=== PATIENT | male | born 1960 | race American Indian/Alaskan Native ===

== ENCOUNTER 2019-08-19 01:36 | Emergency (ER) | payer BC ==
[2019-08-19 01:48] VITALS: BP 152/94
--- NOTE | 2019-08-19 02:30 | XRay Report ---
LEFT KNEE 4 VIEW(S) INDICATION / CLINICAL INFORMATION: pain and swelling COMPARISON: None available. FINDINGS: BONES / JOINT(S): No acute fracture or subluxation. No significant arthritis. Small to moderate supra patellar joint effusion. SOFT TISSUES: Mild anterior soft tissue swelling. ADDITIONAL FINDINGS: None. Signer Name: Deangelo Valadez MD Signed: 08/19/2019 2:25 AM Workstation Name: [id number]
--- NOTE | 2019-08-19 04:06 | Emergency Department Report ---
ED Lower Extremity HPI - General Chief Complaint: Extremity Injury, Lower Stated Complaint: LF KNEE PAIN Time Seen by Provider: 08/19/19 03:53 Source: patient Mode of arrival: Ambulatory Limitations: No Limitations - History of Present Illness Initial Comments: Patient is a 59-year-old male that presents emergency room with left knee pain and swelling x2 days. Yes patient denies trauma. Patient denies falling. Patient denies hitting his knee. Patient states he might of twisted but is not remember. Patient states the pain is a 10 out of 10. Pain states the pain is worse with movement better with rest. -: Sudden Injury: Knee: Left Type of Injury: unknown Place: home Severity: severe Severity scale (0 -10): 10 Improves With: rest Worsens With: weight bearing, movement, palpation Treatments Prior to Arrival: bandage - Related Data Previous Rx's Medication Instructions Recorded Last Taken Type Naproxen [Naprosyn TAB] 500 mg PO BID PRN #15 tablet 08/19/19 Unknown Rx Allergies Allergy/AdvReac Type Severity Reaction Status Date / Time lidocaine Allergy Hives Verified 08/19/19 01:48 Penicillins Allergy Anaphylaxis Verified 08/19/19 01:48 ED Review of Systems ROS: Stated complaint: LF KNEE PAIN Other details as noted in HPI Constitutional: denies: chills, fever Eyes: denies: eye pain, eye discharge, vision change ENT: denies: ear pain, throat pain Respiratory: denies: cough, shortness of breath, wheezing Cardiovascular: denies: chest pain, palpitations Endocrine: no symptoms reported Gastrointestinal: denies: abdominal pain, nausea, diarrhea Genitourinary: denies: urgency, dysuria Musculoskeletal: denies: back pain, joint swelling, arthralgia Skin: denies: rash, lesions Neurological: denies: headache, weakness, paresthesias Psychiatric: denies: anxiety, depression Hematological/Lymphatic: denies: easy bleeding, easy bruising ED Past Medical Hx - Past Medical History Previous Medical History?: Yes Hx Hypertension: Yes Additional medical history: Prediabetes. - Surgical History Past Surgical History?: No - Family History Family history: no significant - Social History Smoking Status: Never Smoker Substance Use Type: None - Medications Home Medications: Home Medications Medication Instructions Recorded Confirmed Last Taken Type Naproxen [Naprosyn TAB] 500 mg PO BID PRN #15 tablet 08/19/19 Unknown Rx ED Physical Exam - General Limitations: No Limitations General appearance: alert, in no apparent distress - Head Head exam: Present: atraumatic, normocephalic - Eye Eye exam: Present: normal appearance - ENT ENT exam: Present: mucous membranes moist - Neck Neck exam: Present: normal inspection - Respiratory Respiratory exam: Present: normal lung sounds bilaterally. Absent: respiratory distress - Cardiovascular Cardiovascular Exam: Present: regular rate, normal rhythm. Absent: systolic murmur, diastolic murmur, rubs, gallop - GI/Abdominal GI/Abdominal exam: Present: soft, normal bowel sounds - Rectal Rectal exam: Present: deferred - Extremities Exam Extremities exam: Present: normal inspection (Except for left knee swelling.), full ROM. Absent: tenderness - Back Exam Back exam: Present: normal inspection - Neurological Exam Neurological exam: Present: alert, oriented X3 - Psychiatric Psychiatric exam: Present: normal affect, normal mood - Skin Skin exam: Present: warm, dry, intact, normal color. Absent: rash ED Course Vital Signs 08/19/19 01:42 Temperature 98.5 F Pulse Rate 85 Respiratory 20 Rate Blood Pressure 152/94 O2 Sat by Pulse 98 Oximetry - Reevaluation(s) Reevaluation #1: I discussed all results and clinical findings with patient. I discussed plan of care with patient. Patient agrees with plan of care. Patient is stable for discharge. Patient will be discharged home. Patient given discharge instructions. Patient voiced understanding of discharge instructions. 08/19/19 04:10 ED Lower Extremity MDM - Radiology Data Radiology results: report reviewed LEFT KNEE 4 VIEW(S) INDICATION / CLINICAL INFORMATION: pain and swelling COMPARISON: None available. FINDINGS: BONES / JOINT(S): No acute fracture or subluxation. No significant arthritis. Small to moderate suprapatellar joint effusion. SOFT TISSUES: Mild anterior soft tissue swelling. ADDITIONAL FINDINGS: None. - Medical Decision Making Patient is a 59-year-old male that presents emergency room with complaints of left knee swelling and pain. Patient states his pain is been going on for 2 days. Patient on exam found to have a swollen knee. Patient's x-ray is negative for acute findings or fracture. Patient clinical findings are consistent with a left knee sprain. Patient require further evaluation with an orthopedist. Patient given a referral to an orthopedist. Patient given a prescription for Naprosyn. Patient instructed not to take Naprosyn and ibuprofen together. Patient given discharge directions. Patient stable for discharge. - Differential Diagnosis Sprain, strain, fracture. Critical care attestation.: If time is entered above; I have spent that time in minutes in the direct care of this critically ill patient, excluding procedure time. ED Disposition Clinical Impression: Swelling of knee joint, left Knee sprain Qualifiers: Encounter type: initial encounter Involved ligament of knee: unspecified ligament Laterality: left Qualified Code(s): S83.92XA - Sprain of unspecified site of left knee, initial encounter Knee pain, left Qualifiers: Chronicity: acute Qualified Code(s): M25.562 - Pain in left knee Disposition: TO HOME OR SELFCARE Is pt being admited?: No Does the pt Need Aspirin: No Condition: Stable Instructions: Knee Sprain (ED), Knee Bursitis (ED), Knee Exercises (GEN) Additional Instructions: Patient to follow-up with primary care in 2 to 3 days. Patient to follow-up with orthopedics in 2 to 3 days. Patient to rest. Patient to increase water. Patient to avoid strenuous exercise or heavy lifting until cleared by orthopedics. Patient to take Tylenol or ibuprofen as needed for pain. Patient to take meds as directed. Patient to return to the ER if condition worsens, changes or new symptoms arise. Prescriptions: Naproxen [Naprosyn TAB] 500 mg PO BID PRN #15 tablet PRN Reason: pain Referrals: PRIMARY CARE, [Primary Care Provider] - 2-3 Days MARIE MIGUEL MD [Staff Physician] - 2-3 Days Time of Disposition: 04:09
== END 2019-08-19 04:11 | disposition home or self-care (01) ==
LOC: ED 01:36
DX: S83.92XA Sprain of unspecified site of left knee, initial encounter (principal); I10 Essential (primary) hypertension; Z88.0 Allergy status to penicillin; Z88.6 Allergy status to analgesic agent; X58.XXXA Exposure to other specified factors, initial encounter; Y93.89 Activity, other specified; Y99.8 Other external cause status; Y92.89 Other specified places as the place of occurrence of the external cause
CPT/HCPCS: 99283